=== PATIENT | male | born 2000 | race Caucasian/White ===

== ENCOUNTER 2022-12-29 12:20 | Emergency (ER) | payer OTHER ==
[~2022-12-29] VITALS: Ht 177.8 cm; Wt 99.8 kg
[~2022-12-29 12:20] MED LIST: Bactrim Ds Tab1 EACH PO; CEPH250SUA PO; CEPH500 PO; CIPHYDOTSU OT; CODACEE120 PO; HYDR1TAB94 PO; IBUP100S PO; Keflex500 MG PO; METPRE4DP PO; NEOPOLHCSU LEFTEAR; PRED10 PO; Prednisone10 MG PO; Prednisone20 MG PO; RXCODACESY PO; TYLENOL COLD; Veetids 500500 MG PO
[2022-12-29 12:28] VITALS: BP 153/96
== END 2022-12-29 14:24 | disposition home or self-care (01) ==
LOC: ER 12:20
DX: M25.561 Pain in right knee (principal); F17.210 Nicotine dependence, cigarettes, uncomplicated
CPT/HCPCS: 73562-RT; 99283-25

== ENCOUNTER 2024-01-03 15:56 | Emergency (ER) | payer OTHER ==
[~2024-01-03] VITALS: Ht 177.8 cm; Wt 117.9 kg
[2024-01-03 16:06] VITALS: BP 138/96
== END 2024-01-03 17:21 | disposition home or self-care (01) ==
LOC: ER 15:56
DX: S93.402A Sprain of unspecified ligament of left ankle, initial encounter (principal); F17.210 Nicotine dependence, cigarettes, uncomplicated; X50.1XXA Overexertion from prolonged static or awkward postures, initial encounter; Z88.0 Allergy status to penicillin
CPT/HCPCS: 73610

== ENCOUNTER 2024-08-22 11:57 | Emergency (ER) | payer OTHER ==
[~2024-08-22] VITALS: Ht 177.8 cm; Wt 113.4 kg
[2024-08-22 12:28] VITALS: BP 130/75
[2024-08-22] MEDS ORDERED: Ketorolac Tromethamine 30mg Vial IM ONE (12:35)
[2024-08-22] MEDS ORDERED: Ketorolac Tromethamine 30mg Vial IV ONE (12:35)
[2024-08-22] MEDS ORDERED: Ketorolac Tromethamine 15mg Vial IM ONE (13:40)
[2024-08-22] MEDS ORDERED: LIDO700A20 TOP (13:55)
== END 2024-08-22 14:03 | disposition home or self-care (01) ==
LOC: ER 11:57
DX: R07.81 Pleurodynia (principal); F17.210 Nicotine dependence, cigarettes, uncomplicated; Z88.0 Allergy status to penicillin
CPT/HCPCS: 71046; 96372; 99283-25; J1885